=== PATIENT | female | born 1985 | race Caucasian/White ===

== ENCOUNTER 2019-09-23 17:35 | Emergency (ER) | payer SELFPAY ==
[~2019-09-23] VITALS: Ht 160 cm; Wt 72.0 kg
[2019-09-23] MEDS ORDERED: LAMOTRIGINE 100MG TABLET PO SCH (19:30)
[2019-09-23] MEDS ORDERED: LAMOTRIGINE 25MG TABLET PO SCH (19:30)
[2019-09-23] MEDS ORDERED: ACETAMINOPHEN 325MG TABLET PO ONE (19:45)
[2019-09-23 20:05] LABS: BASOPHILS % 0.6 % (0.0-2.0); CHLORIDE 108 mEq/L (98-107); HEMATOCRIT. 42.1 % (36.0-48.0); HEMOGLOBIN. 14.9 g/dL (12.0-16.0); LYMPHOCYTES % 28.7 % (20.0-50.0); MEAN CORPUSCULAR HEMOGLOBIN 33.7 pg (28.0-32.0); MEAN CORPUSCULAR VOLUME 95.1 fL (81.0-99.0); MEAN PLATELET VOLUME 8.1 fl (7.4-10.4); MONOCYTES % 7.6 % (2.0-8.0); NEUTROPHILS % 62.1 % (40.0-76.0); PLATELET 324 x1000/uL (130-400); RED BLOOD CELL COUNT 4.43 mill/uL (4.2-5.4); RED CELL DISTRIBUTION WIDTH 12.9 % (11.6-14.6)
[2019-09-23 20:09] LABS: CLARITY URINE CLEAR (CLEAR); COLOR URINE YELLOW (YELLOW); KETONES URINE NEGATIVE (NEGATIVE); LEUKOCYTE ESTERASE URINE NEGATIVE (NEGATIVE); NITRITE URINE NEGATIVE (NEGATIVE); OCCULT BLOOD URINE NEGATIVE (NEGATIVE); PROTEIN URINE NEGATIVE (NEGATIVE); SPECIFIC GRAVITY URINE 1.012 (1.005-1.030); UROBILINOGEN URINE 0.2 E.U./dL (0.2-1.0)
[2019-09-23 20:10] LABS: ETHANOL BLOOD < 10 mg/dL
[2019-09-23 20:21] LABS: *AMPHETAMINES SCREEN URINE NEGATIVE (NEGATIVE); *BARBITURATES SCREEN URINE NEGATIVE (NEGATIVE); *BENZODIAZEPINES SCREEN URINE NEGATIVE (NEGATIVE); *COCAINE SCREEN URINE NEGATIVE (NEGATIVE); METHADONE URINE SCREEN NEGATIVE (NEGATIVE); OPIATES URINE SCREEN NEGATIVE (NEGATIVE)
[2019-09-23 20:22] LABS: PHENCYCLIDINE URINE SCREEN NEGATIVE (NEGATIVE)
[2019-09-23 20:25] LABS: CANNABINOID URINE SCREEN PRESUMTIVE POSITIVE (NEGATIVE)
[2019-09-23 21:05] VITALS: BP 112/68
[2019-09-24] MEDS ORDERED: LAM1 MT (11:27)
[2019-09-24] MEDS ORDERED: ALPR-341 PO (11:27)
[2019-09-24] MEDS ORDERED: CYCL10TA7 MT (11:27)
[2019-09-24] MEDS ORDERED: GABA-290 PO (11:27)
[2019-09-24] MEDS ORDERED: OXYC-662 MT (11:27)
== END 2019-09-23 21:53 | disposition left against medical advice (07) ==
LOC: ER 17:35 → CANRESERV 20:32 → ENRESERV 20:32 → ER 21:53 → CANBEDREQ 23:07
DX: G35 Multiple sclerosis (principal); G40.909 Epilepsy, unspecified, not intractable, without status epilepticus; F12.10 Cannabis abuse, uncomplicated; Z90.49 Acquired absence of other specified parts of digestive tract; Z90.89 Acquired absence of other organs
CPT/HCPCS: 36415; 80053; 80305; 80320; 81003; 83605; 85025; 93005; 99284; G0480

== ENCOUNTER 2019-09-24 00:03 | Inpatient (IN) | payer SELFPAY ==
[~2019-09-24] VITALS: Ht 160 cm; Wt 68.0 kg
[2019-09-24] MEDS ORDERED: SODIUM CHLORIDE 0.9% 1,000 ML IV ONE (00:51)
[2019-09-24] MEDS ORDERED: ONDANSETRON HCL 4MG/2ML INJ IV STA (00:51)
[2019-09-24] MEDS ORDERED: LORAZEPAM 2MG/ML CPJ IV ONE (01:00)
[2019-09-24] MEDS ORDERED: METHYLPREDNISOLONE SOD SUCC 500 MG in DEXT 5% WATER 100 ML IV ONE (01:00)
[2019-09-24] MEDS ORDERED: SODIUM CHLORIDE 0.45% 1,000 ML IV SCH (04:43)
[2019-09-24] MEDS ORDERED: ACETAMINOPHEN 325MG TABLET PO PRN (04:45)
[2019-09-24] MEDS ORDERED: ONDANSETRON HCL 4MG/2ML INJ IV PRN (04:45)
[2019-09-24] MEDS ORDERED: DOCUSATE SODIUM 100MG CAPSULE PO PRN (04:45)
[2019-09-24] MEDS ORDERED: HYDROCODONE/ACETAMINOPHEN 5/325MG TABLET PO PRN (04:45)
[2019-09-24] MEDS ORDERED: CLONIDINE 0.1MG TABLET PO PRN (04:45)
[2019-09-24] MEDS ORDERED: MAGNESIUM/ALUMINUM HYDROXIDE/SIMETHICONE 30ML UDC PO PRN (04:45)
[2019-09-24] MEDS ORDERED: GUAIFENESIN 200MG/10ML SUGAR FREE UDC PO PRN (04:45)
[2019-09-24 07:12] LABS: HEMOGLOBIN. 13.4 g/dL (12.0-16.0); MEAN CORPUSCULAR VOLUME 95.8 fL (81.0-99.0); PLATELET 270 x1000/uL (130-400); RED BLOOD CELL COUNT 4.07 mill/uL (4.2-5.4); RED CELL DISTRIBUTION WIDTH 12.7 % (11.6-14.6)
[2019-09-24 07:18] LABS: CHLORIDE 113 mEq/L (98-107)
[2019-09-24 08:05] LABS: PLATELET ESTIMATE NORMAL
[2019-09-24] MEDS ORDERED: ENOXAPARIN 40MG/0.4ML SYR SUBCUT SCH (09:00)
[2019-09-24] MEDS ORDERED: PREDNISONE 20MG TABLET PO SCH (09:00)
[2019-09-24 11:07] VITALS: BP 122/75
[2019-09-24] MEDS ORDERED: CYCL10TA7 MT (11:27)
[2019-09-24] MEDS ORDERED: ALPR-341 PO (11:27)
[2019-09-24] MEDS ORDERED: OXYC-662 MT (11:27)
[2019-09-24] MEDS ORDERED: LAM1 MT (11:27)
[2019-09-24] MEDS ORDERED: GABA-290 PO (11:27)
[2019-09-24] MEDS ORDERED: OXYCODONE HCL 5MG TABLET PO PRN ×2 (12:00→13:00)
[2019-09-24] MEDS ORDERED: GABAPENTIN 300MG CAPSULE PO SCH (12:00)
[2019-09-24] MEDS ORDERED: ALPRAZOLAM 0.5 MG TABLET PO SCH (12:00)
[2019-09-24] MEDS ORDERED: LAMOTRIGINE 100MG TABLET PO SCH (12:00)
[2019-09-24 13:51] VITALS: BP 122/75
[2019-09-24] MEDS ORDERED: CYCLOBENZAPRINE 10MG TABLET PO SCH (21:00)
== END 2019-09-24 14:26 | disposition left against medical advice (07) | DRG 43 ==
LOC: ER 00:03 → 6EST 02:29 → EDBEDREQSVC 08:36 → ENRESERV 10:50 → EDBEDREQSVC 11:06
PROVIDERS: ADMIT Hospitalist; ATTEND Hospitalist
DX: G35 Multiple sclerosis (principal); F17.210 Nicotine dependence, cigarettes, uncomplicated; G40.909 Epilepsy, unspecified, not intractable, without status epilepticus; F12.90 Cannabis use, unspecified, uncomplicated; Z53.29 Procedure and treatment not carried out because of patient's decision for other reasons
CPT/HCPCS: 36415; 80053; 85025; 93005; 93970; 99285; J1650; J2060; J2405; J2930; J7030; J7060; J7512

== ENCOUNTER 2019-10-03 16:21 | Inpatient (IN) | payer SELFPAY ==
[~2019-10-03] VITALS: Ht 160 cm; Wt 59.0 kg
[~2019-10-03 16:21] MED LIST: ALPR-341 PO; CYCL10TA7 MT; GABA-290 PO; LAM1 MT; OXYC-662 MT
[2019-10-03 17:13] LABS: BASOPHILS % 0.5 % (0.0-2.0); EOSINOPHILS % 0.7 % (0.0-5.0); HEMATOCRIT. 39.7 % (36.0-48.0); HEMOGLOBIN. 14.1 g/dL (12.0-16.0); LYMPHOCYTES % 23.8 % (20.0-50.0); MEAN CORPUSCULAR HEMOGLOBIN 33.6 pg (28.0-32.0); MEAN CORPUSCULAR VOLUME 94.7 fL (81.0-99.0); MONOCYTES % 9.8 % (2.0-8.0); NEUTROPHILS % 65.2 % (40.0-76.0); PLATELET 298 x1000/uL (130-400); RED BLOOD CELL COUNT 4.19 mill/uL (4.2-5.4); RED CELL DISTRIBUTION WIDTH 12.5 % (11.6-14.6)
[2019-10-03 17:18] LABS: CHLORIDE 110 mEq/L (98-107)
[2019-10-03] MEDS ORDERED: LAMOTRIGINE 100MG TABLET PO SCH (17:30)
[2019-10-03] MEDS ORDERED: METHYLPREDNISOLONE SOD SUCC 125 MG/2 ML VIAL IV ONE (19:45)
[2019-10-03] MEDS ORDERED: ALPRAZOLAM 0.5 MG TABLET PO ONE (19:45)
[2019-10-03] MEDS ORDERED: LORAZEPAM 2MG/ML CPJ IV PRN (20:30)
[2019-10-03] MEDS ORDERED: GUAIFENESIN 200MG/10ML SUGAR FREE UDC PO PRN (20:30)
[2019-10-03] MEDS ORDERED: ONDANSETRON HCL 4MG/2ML INJ IV PRN (20:30)
[2019-10-03] MEDS ORDERED: DOCUSATE SODIUM 100MG CAPSULE PO PRN (20:30)
[2019-10-03] MEDS ORDERED: MAGNESIUM/ALUMINUM HYDROXIDE/SIMETHICONE 30ML UDC PO PRN (20:30)
[2019-10-03] MEDS ORDERED: DIPHENHYDRAMINE 50MG/ML VIAL IV PRN (20:30)
[2019-10-03] MEDS ORDERED: HYDROCODONE/ACETAMINOPHEN 10/325MG TABLET PO PRN (20:30)
[2019-10-03] MEDS ORDERED: ENOXAPARIN 40MG/0.4ML SYR SUBCUT SCH (20:30)
[2019-10-03] MEDS ORDERED: IPRATROPIUM/ALBUTEROL 0.5-3(2.5)MG/3ML NEB HHN PRN (20:30)
[2019-10-03] MEDS ORDERED: ACETAMINOPHEN 325MG TABLET PO PRN (20:30)
[2019-10-03] MEDS ORDERED: CLONIDINE 0.1MG TABLET PO PRN (20:30)
[2019-10-03] MEDS ORDERED: HYDRALAZINE 20MG/ML VIAL IV PRN (20:30)
[2019-10-03] MEDS ORDERED: MORPHINE SULFATE 2 MG/ML CPJ (NOT FOR IM USE) IV PRN (20:30)
[2019-10-03 22:00] VITALS: BP 100/53
[2019-10-03] MEDS ORDERED: METHYLPREDNISOLONE SOD SUCC 125 MG/2 ML VIAL IV SCH (22:00)
[2019-10-03] MEDS ORDERED: SODIUM CHLORIDE 0.9% INJ 3ML FLUSH IVF SCH (22:00)
[2019-10-03 23:18] VITALS: BP 101/55
[2019-10-04] MEDS ORDERED: OXYC10TA48 PO (00:04)
[2019-10-04] MEDS ORDERED: LORAZEPAM 1MG TABLET PO PRN (00:30)
[2019-10-04] MEDS ORDERED: LORAZEPAM 2MG/ML CPJ IV PRN (00:45)
[2019-10-04] MEDS ORDERED: LEVETIRACETAM 500MG PREMIX 100 ML IV SCH (01:00)
[2019-10-04] MEDS ORDERED: GABAPENTIN 300MG CAPSULE PO SCH (06:00)
[2019-10-04] MEDS ORDERED: LEVETIRACETAM 500MG TABLET PO SCH (09:00)
== END 2019-10-04 04:05 | disposition left against medical advice (07) | DRG 43 ==
LOC: ER 16:26 → 6WST 19:52 → EDBEDREQTM 20:28 → EDBEDREQSVC 20:28 → ENRESERV 20:51 → 6WST 21:50
PROVIDERS: ADMIT Internal Medicine; ATTEND Internal Medicine
DX: G35 Multiple sclerosis (principal); G40.909 Epilepsy, unspecified, not intractable, without status epilepticus; F17.200 Nicotine dependence, unspecified, uncomplicated; Z53.29 Procedure and treatment not carried out because of patient's decision for other reasons; Z91.14 Patient's other noncompliance with medication regimen; Z90.49 Acquired absence of other specified parts of digestive tract
CPT/HCPCS: 36415; 70551; 80053; 85025; 93005; 96374; 99285; J1650; J1953; J2060; J2930

== ENCOUNTER 2019-10-04 05:05 | Emergency (ER) | payer MEDICAID ==
[~2019-10-04] VITALS: Ht 160 cm; Wt 59.0 kg
[~2019-10-04 05:05] MED LIST changes: +OXYC10TA48 PO
[2019-10-04 09:40] VITALS: BP 105/60
== END 2019-10-04 11:05 | disposition left against medical advice (07) ==
LOC: ER 05:05
DX: G40.909 Epilepsy, unspecified, not intractable, without status epilepticus (principal); G35 Multiple sclerosis; Z90.49 Acquired absence of other specified parts of digestive tract; Z98.51 Tubal ligation status
CPT/HCPCS: 99281